=== PATIENT | male | born 1970 | race Caucasian/White ===

== ENCOUNTER 2024-11-11 16:30 | Emergency (ER) | payer OTHER, SELFPAY ==
[2024-11-11] VITALS (22 sets, daily range): BP systolic 108–166; BP diastolic 58–102; PULSE 48–108; RESP 13–24; TEMP 35.3; O2SAT 91–98; BMI 33.8
--- OUTSIDE RECORDS SUMMARY | 2024-11-11 16:31 | XMS_ITS | Clinical Summary ---
Author Organization [facility] Address [address] [place] [id number] Care Team Providers Care Machine Filler Shredder Name Role Phone Pcp, No Primary Care Provider Unavailabl e Allergies No known active allergies Medications amoxicillin-clavul anate 875-125 mg tablet (AUGMENTIN) 07/26/2020 Active oxyCODONE (ROXICODONE) 5 mg immediate release tablet 07/25/2020 Active Active Problems Problem Noted Date Diagnosed Date Obesity (BMI 30-39.9) 11/23/2016 Right ureteral stone 11/03/2016 Immunizations Immunization Administration Dates Next Due Tdap 11/23/2016 Family History Medical History Relation Name Comments No Known Problems Brother Hypertension Father Diabetes Maternal Grandfather Cancer Mother lung Heart Disease Paternal Grandfather No Known Problems Sister Relation Name Status Comments Brother Alive Father Alive Maternal Grandfather Mother Paternal Grandfather Sister Alive Social History Tobacco Use Types Packs/Day Years Used Date Smoking Tobacco: Never Smokeless Tobacco: Former Chew Tobacco Cessation:Counseling Given: Yes Alcohol Use Standard Drinks/Week Comments No 0 (1 standard drink = 0.6 oz pur e alcohol) Social Connections Answer Date Recorded Frequency of Communication with Friends and Fami ly Not on file 04/11/2021 Financial Resource Strain Answer Date R ecorded Difficulty of Paying Living Expenses Not on file 04/11/2021 Difficulty of Paying Living Expenses Not on file 04/11/2021 Sex and Gender Information Value Date Recorded Sex Assigned at Not on file 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 Gender Identity Not on file Sexual Orientation Not on file Obstetrics History Last Filed Vital Signs Vital Sign Reading Time Taken Comments Blood Pressure 137/94 07/28/2020 2:31 PM CDT Pulse 84 07/28/2020 2:31 PM CDT Temperature 36 C (96.8 F) 06/21/2019 9:30 AM CDT Respiratory Rate 16 06/21/2019 9:30 AM CDT Oxygen Saturation 97% 07/28/2020 2:31 PM CDT Inhaled Oxygen Concentration - - Weight 105.7 kg (233 lb 1.6 oz) 07/28/2020 2:31 PM CDT Height 172.7 cm (5' 8) 06/21/2019 6:25 AM CDT Body Mass Index 35.44 06/21/2019 6:25 AM CDT Plan of Treatment Health Maintenance Due Date Last Done Comments HIV for age 15-65 1984 Hepatitis C screening for ag e 18-79 07/12/1987 Hepatitis B series for 19+ ( 1 of 3 - 19+ 3-dose series) 1988 Colonoscopy through age 75 2014 Lipids for age 45-75 2014 Depression screening for age 12+ 11/23/2017 11/24/19 17 Pneumococcal series for age 50+ (1 of 1 - PCV) 07/12/2019 Zoster (shingles) series for age 50+ (1 of 2) 07/12/2019 BMI (ht and wt on same day) for age 18+ 06/19/2020 06/20/2019, 12/15/2016, 11/23/2016, Additional history exists COVID-19 vaccine series ( season) 2023 Influenza Vaccine (#1) 2024 Tetanus booster 11/23/2026 11/23/[address] [place] [address] Advance Directives * Full Code (Latest Code Status on File) Date Activated Date Inactivated Comments 06/21/2019 6:01 AM 06/21/2019 3:35 PM * Full Code Date Activated Date Inactivated Comments 11/25/2016 11:57 AM 11/25/2016 8:09 PM Care Teams Machine Filler Shredder Relationship Specialty Start Date End Date Pcp, No . PCP - General 04/19/24
--- NOTE | 2024-11-11 16:34 | CRLHL7_ITS ---
For Patients: As a result of the Century Cures Act, medical imaging exams and procedure reports are released immediately into your electronic medical record. You may view this report before your referring provider. If you have questions, please contact your health care provider. INDICATION: 54-year-old with chest and abdominal pain. TECHNIQUE: CT chest without contrast then CT chest, abdomen and pelvis acquired with Isovue 370, 109 mL contrast, dissection protocol. COMPARISON: None. FINDINGS: CHEST: Cardiovascular structures: The unenhanced images demonstrate no evidence of aortic intramural hematoma. The entire aorta is normal in caliber and there is no sign of aortic dissection or aneurysm. No high grade stenosis of the branching arteries. Heart size is normal. No pericardial effusion. Pulmonary Arteries: No central emboli. No dilation. Lungs and pleura: Lungs are clear. No pleural effusions. Shallow inspiration. Mediastinum and stephanie: No mass or adenopathy. Chest wall and axilla: No mass or adenopathy. Bones: Unremarkable for age. ABDOMEN AND PELVIS: Liver: Unremarkable. Gallbladder and bile ducts: Cholecystectomy. No biliary dilation. Pancreas: Unremarkable. Spleen: Unremarkable. Adrenal glands: Unremarkable. Kidneys: Unremarkable. GI tract: Scattered colon diverticula without focal inflammation. No obstruction or perforation. Appendix: Normal Vascular structures: Unremarkable. Lymph nodes: Unremarkable. Miscellaneous: Unremarkable. No free air or significant free fluid. Pelvic Organs: Unremarkable. Bones: Unremarkable for age. Soft Tissues:Small bilateral inguinal hernias containing fat. IMPRESSION: 1. No evidence for dissection, acute pulmonary embolus or acute intrathoracic disease. 2. No acute abdominal or pelvic abnormalities. Please note that all CT scans at this facility use dose modulation, iterative reconstruction, and/or weight-based dosing when appropriate to reduce radiation dose to as low as reasonably achievable. Dictated by Drake Santos MD @ 11/11/2024 5:45:16 PM (Electronically Signed)
[2024-11-11] MEDS: MORPHINE 4 MG/ML INJ IVP (16:51)
[2024-11-11] MEDS: ONDANSETRON 2 MG/ML inj 4 MG IVP (16:51)
[2024-11-11 16:56] LABS: Lactate Sepsis w/Reflex* 2.2 mmol/L (0.5-1.9)
[2024-11-11] MEDS: NITROGLYCERIN 0.4 MG TAB.SUBL SUBLINGUAL (16:57)
[2024-11-11 17:00] LABS: Hematocrit 48.7 % (37.0-53.0); Hemoglobin* 16.7 gm/dL (13.5-17.5); Immature Granulocytes Abs Auto 0.09 K/uL (0.00-0.30); Immature Granulocytes Pct Auto 0.9 %; Mean Corpuscular HGB Conc 34 gm/dL (32-36); Mean Corpuscular Hemoglobin 32 pg (26-34); Mean Corpuscular Volume 94 fL (80-100); RDW Coefficient of Variation % 12.2 % (11.5-15.5); Red Blood Count 5.17 m/uL (4.30-5.90); White Blood Count* 10.47 K/uL (4.50-11.00)
[2024-11-11 17:02] LABS: Lymphocytes Absolute Auto 1.50 K/uL (0.90-2.90); Slide Review Reflex No
--- NOTE | 2024-11-11 17:03 | ED_ITS ---
HPI - General Adult General Date Seen: 11/11/24 Chief complaint: Abdominal Pain Stated complaint: Potential Heart Attack Time Seen by Provider: 11/11/24 16:34 History of Present Illness HPI narrative: Patient is a 54-year-old who presents by private vehicle for evaluation of left- sided pain which seems to be both chest and abdominal, he rates this as severe. It started while he was gardening, he developed some nausea and vomited couple of times at home. He denies history of similar pain. He does not have any known cardiac history, but notes that he does not really go to the doctor. 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 He denies tobacco use. He is status post cholecystectomy. No other abdominal surgeries. He denies shortness of breath or pleuritic chest pain. No recent travel or immobility, no lower extremity swelling or pain. He does have a history of kidney stones remotely but says this feels different. Related Data Previous Rx's ?Medication ?Instructions ?Recorded azithromycin 250 mg tablet See Rx Instructions PO .COM PLEX #6 08/03/24 tabs benzonatate 200 mg capsule 200 mg PO BID-TID PRN cough #20 08/03/24 caps Allergies Allergy/AdvReac Type Severity Reaction Status Date / Time No Known Drug Allergies Allergy Verified 11/11/24 17:16 Review of Systems Status of ROS: Reports: 10 or more systems reviewed and unremarkable except as noted in History and below [facility] Social History Smoking Status: Never smoker How often do you have a drink containing alcohol: monthly or less AUDIT-C Alcohol total score: 1 Non-prescribed substance use: denies use Exam Narrative: Exam Narrative: Vital signs reviewed In general, alert, mildly ill-appearing middle-aged male, looks significantly uncomfortable. Head: Normocephalic, atraumatic. Eyes: Sclera clear. Pupils equal and reactive. ENT: Mucous membranes moist. Neck: Supple without adenopathy. Heart: Bradycardic, regular. No significant murmur. Lungs: Clear. No increased work of breathing, crackles or wheezes. Abdomen: Protuberant, soft, diffuse mid abdominal tenderness without rebound guarding or rigidity. Extremities: Well perfused, pulses intact. No significant edema. Neurologic: Alert, conversant. Speech fluent, face symmetric. Moves all extremities equally. Skin: Warm, dry well perfused. Affect: Normal. Const: Vital Signs, click to edit/add: Vital Signs - 24 hr 11/11/24 16:33 11/11/24 16:34 11/11/24 17:00 Temperature 95.6 F L Pulse Rate 108 H Pulse Rate [Pulse Oximeter] 48 L Respiratory Rate 24 19 Blood Pressure Blood Pressure [Le ft Upper Arm] 164/91 H Pulse Oximetry 98 95 94 Oxygen Delivery Me thod Room Air 11/11/24 17:02 11/11/24 17:03 11/11/24 17:58 Temperature Pulse Rate 104 H 104 H 65 Pulse Rate [Pulse Oximeter] Respiratory Rate 14 15 Blood Pressure 108/58 L Blood Pressure [Le ft Upper Arm] Pulse Oximetry 93 93 91 [facility] 11/11/24 18:00 11/11/24 18:02 11/11/24 18:12 Temperature Pulse Rate 57 L 67 63 Pulse Rate [Pulse Oximeter] Respiratory Rate 20 21 Blood Pressure 153/100 H 160/101 H Blood Pressure [Le ft Upper Arm] Pulse Oximetry 91 91 94 Oxygen Delivery Md thod 11/11/24 18:15 11/11/24 18:22 11/11/24 18:35 Temperature Pulse Rate 61 65 Pulse Rate [Pulse Oximeter] Respiratory Rate 14 24 Blood Pressure 146/102 H Blood Pressure [Le ft Upper Arm] Pulse Oximetry 95 96 Oxygen Delivery Md thod 11/11/24 18:37 11/11/24 18:42 11/11/24 18:45 Temperature Pulse Rate 58 L 68 57 L Pulse Rate [Pulse Oximeter] Respiratory Rate 13 21 17 Blood Pressure 165/90 H 166/95 H Blood Pressure [Le ft Upper Arm] Pulse Oximetry 97 95 96 Oxygen Delivery Me thod 11/11/24 18:52 11/11/24 19:04 11/11/24 19:13 Temperature Pulse Rate 56 L 66 56 L Pulse Rate [Pulse Oximeter] Respiratory Rate 14 21 Blood Pressure 149/87 H 154/96 H Blood Pressure [Le ft Upper Arm] Pulse Oximetry 95 96 95 Oxygen Delivery Md thod 11/11/24 19:15 11/11/24 19:22 11/11/24 19:30 Temperature Pulse Rate 53 L 52 L 54 L Pulse Rate [Pulse Oximeter] Respiratory Rate 16 14 15 Blood Pressure 148/98 H Blood Pressure [Le ft Upper Arm] Pulse Oximetry 94 94 96 Oxygen Delivery Me thod 11/11/24 19:45 Temperature Pulse Rate 60 Pulse Rate [Pulse Oximeter] Respiratory Rate 13 Blood Pressure Blood Pressure [Le ft Upper Arm] Pulse Oximetry 97 Oxygen Delivery Me thod Course Course ED Course: Patient was seen while in triage, he had an EKG which showed a sinus bradycardia ventricular rate of 46. I do not see acute ST segment changes however. He does have a PVC, no markedly abnormal T-waves. Upon placement in the room he had an IV established. I did look with the bedside ultrasound, I do not see pericardial effusion or significant dilation of the right ventricle. His left kidney looks normal. I was not able to visualize his aorta secondary to body habitus and bowel gas. Diagnostic considerations are broad and include aortic pathology such as dissection, acute coronary syndrome, pulmonary embolism, kidney stone, bowel obstruction, mesenteric ischemia, choledocholithiasis, pancreatitis, among others. I have ordered a CT scan to evaluate for dissection, will give morphine and Zofran and try sublingual nitro to see if that has any effect on his pain. He is somewhat hypertensive here with initial blood pressure of 164/91. Sinus bradycardia without evident symptoms such as lightheadedness, shortness of breath or chest pain. Patient did not have significant improvement in his pain with sublingual nitro or morphine, it was briefly slightly better and then became severe again. He had Dilaudid 0.5 mg IV which was helpful. Overall, his workup was really quite negative. His initial troponin was negative, and a repeat troponin at 2-1/2 hours was also 0. His CBC is normal, his metabolic panel is normal, lactate initially was 2.2, repeat was 1.8. LFTs normal, CRP less than 0.5, lipase 142. UA did have 5-10 red blood cells, otherwise negative. CT scan dissection protocol was done. This showed by my review no evidence of dissection. I did not see significant hydronephrosis or evidence of a kidney stone. No evidence of bowel obstruction. No inflammatory changes of the bowel. Radiology read also reads the CT scan is showing no acute findings specifically no dissection, kidney stone, PE or other acute findings. Patient has felt improved since Dilaudid, he has been up to the bathroom, he has had something to drink and abdominal pain has settled down. In talking to his , he was working outside in came inside complaining of not feeling well, she says he just look kind of eduardo, then he had vomiting. He says that he did have some chest discomfort of some kind at home but while here really was just having severe abdominal pain. It is not a particularly hot day, I do not think this was he related. In the absence of ongoing pain in with an improving lactate I do not think this is likely ischemic bowel. There are no noted significant stenoses of the abdominal vasculature. I did recommend to him that we get a stress test, no evidence of acute coronary syndrome tonight but I think this is still worthwhile. At this time I do not see a reason that he can be discharged home and he and his are comfortable with that. Reviewed that no clear cause for his symptoms is evident right now and so if he has recurrent severe pain I would want him to come back to the emergency department. Otherwise, I have arranged for an outpatient stress treadmill echo and have asked him to follow up with Dr. Almaraz after his stress test. Vital Signs Vital signs: Initial Vital Signs Temperature 95.6 F L 11/11/24 16:33 Temperature Source Temporal Artery Scan 11/11/24 16:33 Pulse Rate 48 L 11/11/24 16:33 Respiratory Rate 24 11/11/24 16:33 Blood Pressure 164/91 H 11/11/24 16:33 Blood Pressure Mean 115 H 11/11/24 16:33 Blood Pressure Position Sitting 11/11/24 16:33 Pulse Oximetry 98 11/11/24 16:33 Oxygen Delivery Method Room Air 11/11/24 16:33 Vital Signs Temperature 95.6 F L 11/11/24 16:33 Pulse Rate 48 L 11/11/24 16:33 Respiratory Rate 24 11/11/24 16:33 Blood Pressure 164/91 H 11/11/24 16:33 Pulse Oximetry 98 11/11/24 16:33 Oxygen Delivery Method Room Air 11/11/24 16:33 Temperature 95.6 F L 11/11/24 16:33 Pulse Rate 60 11/11/24 19:45 Respiratory Rate 13 11/11/24 19:45 Blood Pressure 148/98 H 11/11/24 19:22 Pulse Oximetry 97 11/11/24 19:45 Oxygen Delivery Method Room Air 11/11/24 17:02 Medications Administered Medications: Discontinued Medications Generic Name Dose Route Start Last Admin Trade Name [place] PRN Reason Stop Dose Admin Hydromorphone HCl 0.5 mg 11/11/24 17:25 11/11/24 17:28 Hydromorphone 0.5 Mg/0.5 Ml Inj IVP 11/11/24 17:26 0.5 mg ONCE ONE Administration Sodium Chloride 1,000 mls @ 1,000 mls/hr 11/11/24 18:00 11/11/24 18:57 0.9 % Sodium Chloride 1000 Ml IV 11/11/24 18:59 Infused .Q1H TERRY Infusion Morphine Sulfate 4 mg 11/11/24 16:34 11/11/24 16:51 Morphine 4 Mg/Ml Inj IVP 11/11/24 16:35 4 mg ONCE ONE Administration Nitroglycerin 0.4 mg 11/11/24 16:34 11/11/24 16:57 Nitroglycerin 0.4 Mg Tab.Subl SUBLINGUAL 0.4 mg Q5M PRN Administration Ondansetron HCl 4 mg 11/11/24 16:34 11/11/24 16:51 Ondansetron 2 Mg/Ml Inj IVP 11/11/24 16:35 4 mg ONCE ONE Administration Medical Decision Making Lab Data Labs: Lab Results 11/11/24 11/11/24 11/11/24 Range/Units 16:35 16:47 18:58 WBC 10.47 (4.50-11.00) K/uL RBC 5.17 (4.30-5.90) m/uL Hgb 16.7 (13.5-17.5) gm/dL Hct 48.7 (37.0-53.0) % MCV 94 (80-100) fL MCH 32 (26-34) pg MCHC 34 (32-36) gm/dL RDW Coeff of Fernando 12.2 (11.5-15.5) % Plt Count 265 (140-440) K/uL Neut % (Auto) 74.1 H (42.0-72.0) % Lymph % (Auto) 14.8 L (20-44) % [place] % (Auto) 7.1 (0.0-11.0) % Eos % (Auto) 2.7 (0.0-7.0) % Baso % (Auto) 0.4 (0.0-3.0) % Neut # (Auto) 7.80 H (1.7-7.0) K/uL Lymph # (Auto) 1.50 (0.90-2.90) K/uL [place] # (Auto) 0.70 (0.00-0.90) K/UL Eos # (Auto) 0.28 (0.00-0.50) K/uL Baso # (Auto) 0.04 (0.00-0.30) K/uL Abs Immat Gran (auto) 0.09 (0.00-0.30) K/uL Imm/Tot Granulo (auto) 0.9 % INR 0.88 L (0.91-1.10) Sodium 140 (135-149) mmol/L Potassium 3.5 L (3.6-5.1) mmol/L Chloride 106 (96-114) mmol/L Carbon Dioxide 21 (20-32) mmol/L Anion Gap 13 (7-15) mEq/L BUN 13 (7-30) mg/dL Creatinine 1.0 (0.5-1.5) mg/dL Estimated Creat Clear 80.75 Estimated GFR 89 ml/min Glucose 120 H (60-115) mg/dL Lactate 2.2 H 1.8 (0.5-1.9) mmol/L Calcium 9.2 (8.4-10.6) mg/dL Total Bilirubin 0.4 (0.1-1.5) mg/dL Direct Bilirubin 0.2 (0.0-0.5) mg/dL AST 31 (12-35) U/L ALT 28 (4-50) U/L Alkaline Phosphatase 63 (40-150) U/L Troponin I < 0.01 (0.01-0.04) ng/mL C-Reactive Protein < 0.5 L (0.5-1.0) mg/dL Total Protein 8.1 (6.0-8.3) g/dL Albumin 4.8 (3.3-5.0) g/dL Lipase 142 (23-300) U/L Urine Color Yellow (Yellow) Urine Appearance Clear (Clear) Urine pH 7.0 (5.0-8.5) Ur Specific [place] 1.015 (1.000-1.030) Urine Protein Negative (Negative) Urine Glucose (UA) Negative (Negative) Urine Ketones Negative (Negative) Urine Blood 3+ A (Negative) Urine Nitrite Negative (Negative) Urine Bilirubin Negative (Negative) Urine Urobilinogen 0.2 (0.2-1.0) Ur Leukocyte Esterase Negative (Negative) Urine RBC 5-10 A (0-2) Urine WBC 0-2 (0-5) Ur Squamous Epith Cells None (None-Few) Urine Bacteria None (None) POC Troponin I 0.02 (0.01-0.04) ng/ml 11/11/24 Range/Units 19:26 WBC (4.50-11.00) K/uL RBC (4.30-5.90) m/uL Hgb (13.5-17.5) gm/dL Hct (37.0-53.0) % MCV (80-100) fL MCH (26-34) pg MCHC (32-36) gm/dL RDW Coeff of Fernando (11.5-15.5) % Plt Count (140-440) K/uL Neut % (Auto) (42.0-72.0) % Lymph % (Auto) (20-44) % [place] % (Auto) (0.0-11.0) % Eos % (Auto) (0.0-7.0) % Baso % (Auto) (0.0-3.0) % Neut # (Auto) (1.7-7.0) K/uL Lymph # (Auto) (0.90-2.90) K/uL [place] # (Auto) (0.00-0.90) K/UL Eos # (Auto) (0.00-0.50) K/uL Baso # (Auto) (0.00-0.30) K/uL Abs Immat Gran (auto) (0.00-0.30) K/uL Imm/Tot Granulo (auto) % INR (0.91-1.10) Sodium (135-149) mmol/L Potassium (3.6-5.1) mmol/L Chloride (96-114) mmol/L Carbon Dioxide (20-32) mmol/L Anion Gap (7-15) mEq/L BUN (7-30) mg/dL Creatinine (0.5-1.5) mg/dL Estimated Creat Clear Estimated GFR ml/min Glucose (60-115) mg/dL Lactate (0.5-1.9) mmol/L Calcium (8.4-10.6) mg/dL Total Bilirubin (0.1-1.5) mg/dL Direct Bilirubin (0.0-0.5) mg/dL AST (12-35) U/L ALT (4-50) U/L Alkaline Phosphatase (40-150) U/L Troponin I (0.01-0.04) ng/mL C-Reactive Protein (0.5-1.0) mg/dL Total Protein (6.0-8.3) g/dL Albumin (3.3-5.0) g/dL Lipase (23-300) U/L Urine Color (Yellow) Urine Appearance (Clear) Urine pH (5.0-8.5) Ur Specific [place] (1.000-1.030) Urine Protein (Negative) Urine Glucose (UA) (Negative) Urine Ketones (Negative) Urine Blood (Negative) Urine Nitrite (Negative) Urine Bilirubin (Negative) Urine Urobilinogen (0.2-1.0) Ur Leukocyte Esterase (Negative) Urine RBC (0-2) Urine WBC (0-5) Ur Squamous Epith Cells (None-Few) Urine Bacteria (None) POC Troponin I 0.00 L (0.01-0.04) ng/ml Imaging Data CT scan - abdomen: Attestation: I have reviewed the pertinent imaging results. Radiologist's impression: Patient: Abel Johnson MR#: [id number] : 1970 Acct:[id number] Loc: ED Service Date: 11/11/[address]: Ordering Physician: Negra Joseph M.D. Date of Service: 11/11/24 Procedure(s): CT angio CAP aortic dissection Accession Number(s): [id number] cc: Negra Joseph M.D.; Provider,Not a Local~ For Patients: As a result of the Cures Act, medical imaging exams and procedure reports are released immediately into your electronic medical record. You may view this report before your referring provider. If you have questions, please contact your health care provider. INDICATION: 54-year-old with chest and abdominal pain. TECHNIQUE: CT chest without contrast then CT chest, abdomen and pelvis acquired with Isovue 370, 109 mL contrast, dissection protocol. COMPARISON: None. FINDINGS: CHEST: Cardiovascular structures: The unenhanced images demonstrate no evidence of aortic intramural hematoma. The entire aorta is normal in caliber and there is no sign of aortic dissection or aneurysm. No high grade stenosis of the branching arteries. Heart size is normal. No pericardial effusion. Pulmonary Arteries: No central emboli. No dilation. Lungs and pleura: Lungs are clear. No pleural effusions. Shallow inspiration. Mediastinum and stephanie: No mass or adenopathy. Chest wall and axilla: No mass or adenopathy. Bones: Unremarkable for age. ABDOMEN AND PELVIS: Liver: Unremarkable. Gallbladder and bile ducts: Cholecystectomy. No biliary dilation. Pancreas: Unremarkable. Spleen: Unremarkable. Adrenal glands: Unremarkable. Kidneys: Unremarkable. GI tract: Scattered colon diverticula without focal inflammation. No obstruction or perforation. Appendix: Normal Vascular structures: Unremarkable. Lymph nodes: Unremarkable. Miscellaneous: Unremarkable. No free air or significant free fluid. Pelvic Organs: Unremarkable. Bones: Unremarkable for age. Soft Tissues:Small bilateral inguinal hernias containing fat. IMPRESSION: 1. No evidence for dissection, acute pulmonary embolus or acute intrathoracic disease. 2. No acute abdominal or pelvic abnormalities. Please note that all CT scans at this facility use dose modulation, iterative reconstruction, and/or weight-based dosing when appropriate to reduce radiation dose to as low as reasonably achievable. Dictated by Drake Santos MD @ 11/11/2024 5:45:16 PM Discharge Plan Discharge Clinical Impression: Abdominal pain Patient Disposition: Home, Self-Care Condition: Improved Instructions: Abdominal Pain (ED) Additional Instructions: As discussed, your test today are all reassuring. Your EKG and blood work do not show evidence of a heart attack. Your kidney function, liver function, electrolytes and blood sugar are all normal. Your urine had a few red blood cells in it but does not show evidence of infection, and your CT scan did not show evidence of a problematic kidney stone. As of now, I do not know the etiology of your symptoms. If you have recurrent severe pain please return to the emergency room right away. Otherwise, I have asked them to schedule a stress test for you. I would like you to make an appointment with Dr. Almaraz for follow-up after your stress test. This will help further evaluate for coronary artery disease, or decreased oxygen supply of the heart. Prescriptions: No Action azithromycin 250 mg tablet See Rx Instructions PO .COMPLEX Qty: 6 0RF Rx Instructions: For 250 mg dose pack: take 500 mg today (day 1), then 250 mg for 4 days (days 2-5) PO benzonatate 200 mg capsule 200 mg PO BID-TID PRN (Reason: cough) Qty: 20 0RF Follow Up/Referrals: Provider,Not a Local [Primary Care Provider, Family Practice] Stand Alone Forms: [facility] Info Instructions
[2024-11-11 17:13] LABS: Albumin* 4.8 g/dL (3.3-5.0); Chloride* 106 mmol/L (96-114)
[2024-11-11 17:14] LABS: Potassium* 3.5 mmol/L (3.6-5.1); Sodium* 140 mmol/L (135-149)
[2024-11-11 17:16] LABS: Blood Urea Nitrogen* 13 mg/dL (7-30); Creatinine* 1.0 mg/dL (0.5-1.5); Est. Creatinine Clearance* 80.75; Estimated Glomerular Filt Rate 89 ml/min; INR 0.88 (0.91-1.10); Prothrombin Time 12.7 Seconds
[2024-11-11 17:17] LABS: Alanine Aminotransferase* 28 U/L (4-50); Alkaline Phosphatase* 63 U/L (40-150); Anion Gap 13 mEq/L (7-15); Aspartate Amino Transferase* 31 U/L (12-35); Bilirubin Direct* 0.2 mg/dL (0.0-0.5); Bilirubin Total* 0.4 mg/dL (0.1-1.5); Calcium* 9.2 mg/dL (8.4-10.6); Carbon Dioxide* 21 mmol/L (20-32); Glucose* 120 mg/dL (60-115); Total Protein* 8.1 g/dL (6.0-8.3)
[2024-11-11 17:22] LABS: Troponin, Point-of-Care* 0.02 ng/ml (0.01-0.04)
[2024-11-11 19:01] LABS: Lactate Sepsis 2 Hour 1.8 mmol/L (0.5-1.9)
[2024-11-11 19:16] LABS: Appearance Urine Clear (Clear)
[2024-11-11 19:37] LABS: Troponin, Point-of-Care* 0.00 ng/ml (0.01-0.04)
== END 2024-11-11 19:53 | disposition home or self-care (01) ==
PROVIDERS: Emergency Provider Emergency Medicine
DX: R10.9 Unspecified abdominal pain (principal); R07.9 Chest pain, unspecified; R11.2 Nausea with vomiting, unspecified; I10 Essential (primary) hypertension
CPT/HCPCS: 36415; 71275; 74174; 80048; 80076; 81001; 83605; 83690; 84484; 85025; 85610; 86140; 93005; 94761; 96374; 96375; 99284; 99285; A9270; J1171; J2270; J2405; J7030; Q9967

== ENCOUNTER 2024-11-12 17:31 | Emergency (ER) | payer OTHER, SELFPAY ==
--- OUTSIDE RECORDS SUMMARY | 2024-11-12 17:33 | XMS_ITS | Clinical Summary ---
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 Gender Identity Not on file Sexual Orientation [...] 06/21/2019 6:25 AM CDT Plan of Treatment Upcoming Encounters Date Type Department Care Team (Late st Contact Info) Description 11/13/2024 2:30 PM CDT Orders Only [facility] [address] [place] [address] Health Maintenance Due Date Last Done Comments [...] Additional history exists COVID-19 vaccine series ( - 2023- season) 2023 Influenza Vaccine (#1) 2024 Tetanus booster 11/23/2026 11/23/2016 Insurance [facility] Advance Directives * Full Code (Latest Code Status on File) Date Activated Date Inactivated Comments 06/21/2019 6:01 AM 06/21/2019 3:35 PM * Full Code Date Activated Date Inactivated Comments 11/25/2016 11:57 AM 11/25/2016 8:09 PM Care Teams Certified Medical Transcriptionist Relationship Specialty Start Date End Date Pcp, No . PCP - General 04/19/24
[2024-11-12 17:43] VITALS: BP 176/101; PULSE 50; RESP 20; TEMP 36.1; O2SAT 97; BMI 34.1
--- NOTE | 2024-11-12 18:42 | CRLHL7_ITS ---
For Patients: As a result of the Century Cures Act, medical imaging exams and procedure reports are released immediately into your electronic medical record. You may view this report before your referring provider. If you have questions, please contact your health care provider. INDICATION: Flank pain. TECHNIQUE: CT abdomen and pelvis without contrast. COMPARISON: July 23, 2020. FINDINGS: Lower chest: Scattered atelectasis. Liver: Normal in size and attenuation. No suspicious masses. Gallbladder and bile ducts: Prior cholecystectomy. Pancreas: Unremarkable. No mass or inflammation. Spleen: Normal in size. No masses. Adrenal glands: Normal in size. No nodules. Kidneys: Mild left-sided hydroureteronephrosis secondary to punctate obstructing left UVJ stone (series 2/image 139). Additional punctate nonobstructing right renal stone GI tract: Colonic diverticulosis without diverticulitis.. Normal in caliber. No sign of mass or inflammation. Normal appendix. Vasculature: Abdominal aorta is normal in caliber. Lymph nodes: No lymphadenopathy. Peritoneum/Abdominal Wall: Small fat containing left inguinal hernia.. No sign of mass or infiltration. No free air or significant free fluid. Pelvis: Unremarkable. No pelvic masses. Bones: Unremarkable for age. IMPRESSION: Mild left-sided hydronephrosis secondary to punctate obstructing left UVJ stone. Please note that all CT scans at this facility use dose modulation, iterative reconstruction, and/or weight-based dosing when appropriate to reduce radiation dose to as low as reasonably achievable. Dictated by Abel Mcdonald MD @ 11/12/2024 7:39:56 PM (Electronically Signed)
--- NOTE | 2024-11-12 18:44 | ED_ITS ---
HPI - Abdominal Pain General Chief Complaint: Flank Pain Stated Complaint: abd. pain Time Seen by Provider: 11/12/24 18:33 History of Present Illness HPI narrative: This 54-year-old male comes in reporting severe left flank pain that began yesterday. He has a history of kidney stones and states this feels like another stone that he is passing. He has some associated nausea. He reports some difficulty passing urine recently but was able to provide a urine sample here. Related Data Allergies Allergy/AdvReac Type Severity Reaction Status Date / Time No Known Drug Allergies Allergy Verified 11/11/24 17:16 Review of Systems Status of ROS Reports: 10 or more systems reviewed and unremarkable except as noted in History and below Narrative Constitutional: No fevers, no weight gain or loss. Eyes: No discharge. No vision changes. HENT: No congestion, no sore throat, no ear pain. Cardiovascular: No chest pain, no palpitations. Respiratory: No shortness of breath, no wheezes, no cough. Gastrointestinal: Flank pain and abdominal pain. Genitourinary: No dysuria, no hematuria. Musculoskeletal: Normal range of motion. Skin: No rashes, no pruritis. Neurological: No dizziness, weakness, sensory change, speech change. Endo/Heme/Allergies: No bruising or bleeding. No polydipsia. Pysch: no suicidality, no anxiety, no insomnia. All other systems reviewed and are negative. [facility] Social History Smoking Status: Never smoker How often do you have a drink containing alcohol: monthly or less AUDIT-C Alcohol total score: 1 Non-prescribed substance use: denies use Exam Narrative: Exam Narrative: Constitutional: Well-developed, well-nourished. HEENT: Normocephalic, atraumatic. Neck: Normal range of motion. Nontender. Supple. Heart: Intact distal pulses. Lungs: No chest discomfort. No wheezes, rhonchi, or rales. Abdomen: Diffuse abdominal pain and left flank pain. Back: Normal range of motion. Extremities: Normal range of motion. No injury. Skin: Intact. No rash. Warm. No erythema or pallor. Neurologic: No altered sensation. No weakness. Alert and oriented. Psychiatric: No suicidality. No anxiety or depression. No insomnia. Nursing notes and vitals signs are reviewed. Const: Vital Signs, click to edit/add: Vital Signs - 24 hr 11/12/24 17:43 Temperature 96.9 F L Pulse Rate [Pulse Oximeter] 50 L Respiratory Rate 20 Blood Pressure [Ri ght Upper Arm] 176/101 H Pulse Oximetry 97 Oxygen Delivery Me thod Room Air Course Vital Signs Vital signs: Initial Vital Signs Temperature 96.9 F L 11/12/24 17:43 Temperature Source Temporal Artery Scan 11/12/24 17:43 Pulse Rate 50 L 11/12/24 17:43 Respiratory Rate 20 11/12/24 17:43 Blood Pressure 176/101 H 11/12/24 17:43 Blood Pressure Mean 126 H 11/12/24 17:43 Blood Pressure Position Sitting 11/12/24 17:43 Pulse Oximetry 97 11/12/24 17:43 Oxygen Delivery Method Room Air 11/12/24 17:43 Vital Signs Temperature 96.9 F L 11/12/24 17:43 Pulse Rate 50 L 11/12/24 17:43 Respiratory Rate 20 11/12/24 17:43 Blood Pressure 176/101 H 11/12/24 17:43 Pulse Oximetry 97 11/12/24 17:43 Oxygen Delivery Method Room Air 11/12/24 17:43 Temperature 96.9 F L 11/12/24 17:43 Pulse Rate 50 L 11/12/24 17:43 Respiratory Rate 20 11/12/24 17:43 Blood Pressure 176/101 H 11/12/24 17:43 Pulse Oximetry 97 11/12/24 17:43 Oxygen Delivery Method Room Air 11/12/24 17:43 Medications Administered Medications: Discontinued Medications Generic Name Dose Route Start Last Admin Trade Name Freq PRN Reason Stop Dose Admin Hydromorphone HCl 0.5 mg 11/12/24 18:42 11/12/24 18:49 Hydromorphone 0.5 Mg/0.5 Ml Inj IVP 11/12/24 18:43 0.5 mg ONCE ONE Administration Ketorolac Tromethamine 30 mg 11/12/24 18:42 11/12/24 18:49 Ketorolac 30 Mg/Ml Inj IVP 11/12/24 18:43 30 mg ONCE ONE Administration Ondansetron HCl 4 mg 11/12/24 18:42 11/12/24 18:49 Ondansetron 2 Mg/Ml Inj IVP 11/12/24 18:43 4 mg ONCE ONE Administration MDM - Abdominal Pain MDM Narrative Medical decision making narrative: This patient comes in with symptoms typical of passing a kidney stone. He has had 6 stones that he has passed previously. An IV was established as he was rather uncomfortable. He did receive IV doses of Toradol 30 mg, Dilaudid 0.5 mg, and Zofran 4 mg. This brought sufficient relief to his symptoms. CT imaging does show a small punctate stone at the left ureterovesical junction. There is associated mild hydronephrosis. His urinalysis shows some microscopic blood but no evidence of infection. The patient is okay to be discharged home and did receive prescriptions for Erwin, Toradol, and Zofran. Lab Data Labs: Lab Results 11/12/24 Range/Units 18:00 Urine Color Yellow (Yellow) Urine Appearance Clear (Clear) Urine pH 5.5 (5.0-8.5) Ur Specific Freedom >= 1.030 (1.000-1.030) Urine Protein 1+ A (Negative) Urine Glucose (UA) Negative (Negative) Urine Ketones Negative (Negative) Urine Blood 3+ A (Negative) Urine Nitrite Negative (Negative) Urine Bilirubin Negative (Negative) Urine Urobilinogen 0.2 (0.2-1.0) Ur Leukocyte Esterase Negative (Negative) Imaging Data CT scan - abdomen: Radiologist's impression: Mild left-sided hydronephrosis secondary to punctate obstructing left UVJ stone. Discharge Plan Discharge Clinical Impression: Calculus of kidney Patient Disposition: Home w/ Parent or Adult Condition: Improved Additional Instructions: Take medication as needed and directed. Follow up with MD return if worsening. Follow Up/Referrals: Provider,Not a Local [Primary Care Provider, Family Practice] Stand Alone Forms: [facility] Info Instructions
[2024-11-12] MEDS: ONDANSETRON 2 MG/ML inj 4 MG IVP (18:49)
[2024-11-12 18:53] VITALS: O2SAT 97
[2024-11-12 19:09] LABS: Appearance Urine Clear (Clear)
--- OUTSIDE RECORDS SUMMARY | 2024-11-13 09:16 | XMS_ITS | Clinical Summary ---
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 Gender Identity Not on file Sexual Orientation [...] Description 11/13/2024 2:30 PM CDT Orders Only [facility] [address] [place] [address] Health Maintenance Due Date Last Done Comments [...] (#1) 2024 Tetanus booster 11/23/2026 11/23/2016 Insurance [employer] Advance Directives * Full Code (Latest Code Status on File) Date Activated Date Inactivated Comments 06/21/2019 6:01 AM 06/21/2019 3:35 PM * Full Code Date Activated Date Inactivated Comments 11/25/2016 11:57 AM 11/25/2016 8:09 PM Care Teams Mail Teller Relationship Specialty Start Date End Date Pcp, No . PCP - General 04/19/24
== END 2024-11-12 21:18 | disposition home or self-care (01) ==
PROVIDERS: Emergency Provider Emergency Medicine Emergency Medical Services
DX: N20.0 Calculus of kidney (principal); R11.0 Nausea; Z87.442 Personal history of urinary calculi
CPT/HCPCS: 74176; 81001; 81003; 94761; 96374; 96375; 99284; J1171; J1885; J2405

== ENCOUNTER 2024-11-13 14:04 | Outpatient (CLI) | payer OTHER, SELFPAY ==
[2024-11-13] MEDS: PERFLUTREN LIPID MICROSPHERES 2 ML VIAL IVP (15:36)
[2024-11-13 15:39] VITALS: BP 180/120; PULSE 90; RESP 18
--- NOTE | 2024-11-13 15:47 | P.STN_ITS ---
Stress Test Note Date Date of test: 11/13/24 Providers Referring provider: Negra Joseph Primary care provider: Jaren Almaraz Stress test physician: Ganesh Cruz Stress Test Note Stress test ordered: Stress Echo Indication for test: Chest pain Stress test medicine: Definity Results discussion: Patient is a very nice gentleman who presents for the above test after discussion the risks benefits and side effects he would like to proceed, his currently battling a kidney stone, cardiac stress test history is reviewed, pretest EKG shows normal sinus rhythm, with a ventricular rate of 50, blood pressure 144/98. Standard Colin protocol using definity is done for 9 minute., he achieved a metabolic equivalent of 10.3 Mets. A maximum heart rate of 150, which is 107% of the maximum, maximum blood pressure 196 on 04/14. Test is terminated because of fulfillment of protocol, during this test he had no chest pain or shortness of breath, there is no ST wave changes suggestive of ischemia. Impression: Negative electrographic portion of stress echo, subjectively negative Follow up suggested: Await echo read, clinical correlation with this will be needed, he will follow- up with the above physician, the left this testing facility in good condition we did give him a shot of Toradol 30 mg IM before he left, he has not had any NSAIDs today, or any other medication for his kidney stones, I did review his chart in the emergency room, and told him that he should not take any ibuprofen Toradol for the remainder of the day, he was grateful for this.
== END 2024-11-13 15:40 | disposition home or self-care (01) ==
LOC: STRESS 14:04
PROVIDERS: Visit Provider Emergency Medicine
DX: R07.9 Chest pain, unspecified (principal)
CPT/HCPCS: 93016; 93325; 93351; J1885; Q9957

== ENCOUNTER 2025-02-22 08:58 | Emergency (ER) | payer OTHER, SELFPAY ==
[2025-02-22] VITALS (11 sets, daily range): BP systolic 136–180; BP diastolic 90–100; PULSE 42–51; RESP 14–18; TEMP 36.9; O2SAT 92–96; BMI 34.2
--- OUTSIDE RECORDS SUMMARY | 2025-02-22 09:01 | XMS_ITS | Clinical Summary ---
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 Gender Identity Not on file Sexual Orientation [...] 06/19/2020 06/20/2019, 12/15/2016, 11/23/2016, Additional history exists Influenza Vaccine (#1) 2024 Tetanus booster 11/23/2026 11/23/2016 RSV vaccine for adults or (1 - 1-dose 75+ series) 2044 Insurance [place] [id number] Advance Directives * Full Code (Latest Code Status on File) Date Activated Date Inactivated Comments 06/21/2019 6:01 AM 06/21/2019 3:35 PM * Full Code Date Activated Date Inactivated Comments 11/25/2016 11:57 AM 11/25/2016 8:09 PM Care Teams Vacuum Metalizing Supervisor Relationship Specialty Start Date End Date Pcp, No . PCP - General 04/19/24
--- NOTE | 2025-02-22 10:08 | ED.GENADULT ---
HPI - General Adult General Time Seen by Provider: 10:09 Date Seen: 02/22/25 Chief complaint: Dizziness/Vertigo Stated complaint: Loss of hearing L ear, dizziness Time Seen by Provider: 02/22/25 10:08 Source: patient and RN notes reviewed Mode of arrival: ambulatory Limitations: no limitations History of Present Illness HPI narrative: This 54-year-old male is coming in with loss of hearing in dizziness, the loss of hearing is in his left ear. He noted ringing in his left ear yesterday and muffling of sound. Today now he notes dizziness which is described as a spinning sensation, worse with lying down. He notes no otalgia, has not had any cough or cold symptoms, no chest symptoms. He has never had symptoms like this before, does not note any incoordination with arms legs, due to his dizziness or spinning sensation, feel some disequilibrium with walking but no other neurologic symptoms noted, no visual symptoms. Again no pain in the ear, no fevers. Patient is not aware of anybody in the family with a history of Meniere's disease. Related Data Home Medications ?Medication ?Instructions ?Recorded ?Confirmed ketorolac 10 mg tablet 10 mg PO QHS 11/20/24 11/20/24 Previous Rx's ?Medication ?Instructions ?Recorded meclizine 25 mg tablet 25 mg PO QID PRN #60 tabs 02/22/25 prednisone 20 mg tablet 20 mg PO BID #14 tabs 02/22/25 valacyclovir 1 gram tablet 1,000 mg PO TID #21 tabs 02/22/25 Allergies Allergy/AdvReac Type Severity Reaction Status Date / Time No Known Drug Allergies Allergy Verified 11/20/24 14:51 Review of Systems Status of ROS: Reports: 6 or more systems reviewed and unremarkable except as noted in History and below PFSH PFS Surgical History History of cholecystectomy ?Z90.49 - Acquired absence of other specified parts of digestive tract (ICD-10) Social History What is your current living situation?: declined to answer Problems where you live: declined to answer In the past 12 months, utilities in danger of being shut off: declined to answer In past 12 months, lack of transportation kept you from medical appts, meetings, work, or getting things needed for daily living: declined to answer In the past 12 mos, have been you worried that your food would run out before you had money to buy more?: declined to answer In the past 12 mos, the food you bought just didn't last and you didn't have money to buy more?: declined to answer Smoking Status: Never smoker How often do you have a drink containing alcohol: monthly or less AUDIT-C Alcohol total score: 1 Non-prescribed substance use: denies use How often does anyone, including family, friends and others, physically hurt you: decline to answer How often does anyone, including family, friends and others, insult or talk down to you: decline to answer How often does anyone, including family, friends and others, threaten you with harm: decline to answer How often does anyone, including family, friends and others, scream or curse at you: decline to answer service: No Health Related Social Needs: unsheltered homelessness (Z59.02) Exam Const: Vital Signs, click to edit/add: Vital Signs - 24 hr 02/22/25 09:29 02/22/25 12:00 02/22/25 13:00 Temperature 98.4 F Pulse Rate 44 L 44 L Pulse Rate [Pulse Oximeter] 45 L Respiratory Rate 18 14 14 Blood Pressure 136/90 H Blood Pressure [Ri ght Upper Arm] 180/100 H Pulse Oximetry 95 94 93 Oxygen Delivery Me thod Room Air Room Air This 54-year-old male was resting, wakens easily, he is alert, interactive, no apparent distress, head of bed is at about 45?. Pupils are equal and round, conjugate gaze, sclera clear. He has some occasional right fine beating nystagmus at attenuate, I really cannot get nystagmus, there is no increased symptoms with head impulse, no nystagmus noted. TMs canals are normal. Oropharynx normal, symmetrical facial function, speech is normal. Neck is supple, no adenopathy, no jugular venous distension. Lungs are clear come good air entry, no wheezing or crackles, no tachypnea, no accessory muscle use. CV regular rate and rhythm, no murmur. He cannot hear finger rub by his left ear but can by his right ear. Documenting provider has reviewed patient's vital signs: yes Course Course ED Course: Have reviewed with patient that I do wonder if this could be an initial episode of Meniere's disease. He definitely has hearing loss, discussed with him I am going to talk to ENT and I will come back to talk to him. Reevaluation(s) Time of Reevaluation #1: 10:27 Reevaluation #1: Patient in I reviewed the ENT differential of the sudden hearing loss which could be viral, it is possible this is a 1st episode of Meniere's disease. Had further questions about the dizziness or the spinning sensation, particularly if he lies back. Vertigo is associated with Meniere's disease but there has to be 2 episodes technically to diagnose that. I did tell the patient that I would talk to Neurology briefly on this case as well. Time of Reevaluation #2: 11:07 Reevaluation #2: Patient will be having his MRI in about an hour. Will give him an oral dose of Valium 5 mg and meclizine 25 mg to help with dizziness when lying back. Time of Reevaluation #3: 13:55 Reevaluation #3: Patient is provided a copy of his MRI report. There is no evidence of any stroke. He does feel a bit better after Valium and meclizine. We will discharge show for treatment of acute since in her hearing loss, treat with prednisone and Valtrex. Will give him some meclizine to help with vertiginous symptoms. Consultations Consultation #1: Did talk to Dr. Li from ENT. He is concerned that this could be sudden onset of hearing loss, there can be dizziness with this. He thinks we should treat with prednisone and Valtrex. Patient should follow-up in a week. By definition this cannot be Meniere's because he would need to episodes but this certainly could be the 1st episode of Meniere's. No further workup is indicated at this time, we should treat the patient with the medications and have him follow-up. I will update the patient on this. Time: 10:24 Consultation #2: Did speak with Stroke Neurology from [facility] Dr. Sheehan. He agrees with treating with prednisone and Valtrex as this does sound like it could be a viral labyrinthitis type picture with the sudden hearing loss. Hearing loss is not typically a stroke symptom but it is possible it could be, he is going to have us proceed with MR imaging. I will update the patient on this, MR brain noncontrast has been ordered. If there is no concerns on this, patient will be discharged with plans as noted. Time: 10:53 Vital Signs Vital signs: Initial Vital Signs Temperature 98.4 F 02/22/25 09:29 Temperature Source Temporal Artery Scan 02/22/25 09:29 Pulse Rate 45 L 02/22/25 09:29 Respiratory Rate 18 02/22/25 09:29 Blood Pressure 180/100 H 02/22/25 09:29 Blood Pressure Mean 126 H 02/22/25 09:29 Pulse Oximetry 95 02/22/25 09:29 Oxygen Delivery Method Room Air 02/22/25 09:29 Vital Signs Temperature 98.4 F 02/22/25 09:29 Pulse Rate 45 L 02/22/25 09:29 Respiratory Rate 18 02/22/25 09:29 Blood Pressure 180/100 H 02/22/25 09:29 Pulse Oximetry 95 02/22/25 09:29 Oxygen Delivery Method Room Air 02/22/25 09:29 Temperature 98.4 F 02/22/25 09:29 Pulse Rate 44 L 02/22/25 13:00 Respiratory Rate 14 02/22/25 13:00 Blood Pressure 136/90 H 02/22/25 12:00 Pulse Oximetry 93 02/22/25 13:00 Oxygen Delivery Method Room Air 02/22/25 12:00 Medications Administered Medications: Discontinued Medications Generic Name Dose Route Start Last Admin Trade Name Mingo LYMANN Reason Stop Dose Admin Diazepam 5 mg 02/22/25 11:06 02/22/25 11:17 Diazepam 5 Mg Tablet PO 02/22/25 11:07 5 mg ONCE ONE Administration Meclizine HCl 25 mg 02/22/25 11:06 02/22/25 11:17 Meclizine Hcl 25 Mg Tablet PO 02/22/25 11:07 25 mg ONCE ONE Administration Medical Decision Making Imaging Data MR Brain: Attestation: I have reviewed the pertinent imaging results. Radiologist's impression: Patient: MARY MORGAN Facility:?[facility] Patient ID:?[id number] Site Patient ID:?[id number]. Site :?[id number] Study:?MRI-Head WO-02/22/2025 12:51:59 PM Ordering Physician:?Anjum Gandhi Final Report: Indication: Dizziness, left-sided hearing loss Technique: Multiplanar, multisequence MRI of the brain obtained without contrast. Comparison: None. Findings: The ventricles and cortical sulci are age-appropriate in size and configuration. No midline shift or mass effect. No acute intracranial hemorrhage or abnormal extra-axial fluid collection. No evidence of acute/subacute ischemia. A few nonspecific punctate FLAIR hyperintense foci are noted throughout the cerebral white matter, suggestive of minor chronic microangiopathy changes or potentially sequela of chronic migraine headaches. Partially empty sella configuration. Preserved major intracranial arterial flow voids. Unremarkable bone marrow signal. Minor mucosal thickening throughout the ethmoid air cells and inferior maxillary sinuses. No mastoid effusion. Unremarkable orbits. Impression: 1. No evidence of acute intracranial abnormality. Dictated by Verónica Ocasio MD @ 02/22/2025 12:58:29 PM (Electronic Signature) Discharge Plan Discharge Clinical Impression: Acute hearing loss of left ear, Vertigo Patient Disposition: Home, Self-Care Condition: Stable Instructions: Meniere Disease (ED), Hearing Loss (ED), Vertigo (ED) Additional Instructions: Start the prednisone today, take 2 pills or 40 mg right away and then starting tomorrow follow the prescription instructions. Try to get 2 doses of the Valtrex in today, take 1 when you get the medication and then another 1 tonight, do recommend that you complete this medication, it will be taken 3 times a day. Meclizine can be used as needed for the dizziness/vertigo. Follow prescription instructions. You are going to need to call [facility] to get scheduled for an ENT follow-up with Dr. Li in 1-2 weeks time. Take the prednisone with food to help prevent stomach irritation. I did provide a handout on Meniere's disease. Technically, Meniere's disease cannot be diagnosed unless a patient has had 2 episodes of vertigo with hearing loss. It is possible that this could be Meniere's, possible it could be a viral issue causing the left inner ear to have hearing loss from nerve swelling, can be associated with the vertigo/dizziness as well. Activity Level: Activity as Tolerated Prescriptions: New prednisone 20 mg tablet 20 mg PO BID Qty: 14 0RF Rx Instructions: Take at 8am and 2pm with food. valacyclovir 1 gram tablet 1,000 mg PO TID Qty: 21 0RF meclizine 25 mg tablet 25 mg PO QID PRNQty: 60 0RF No Action ketorolac 10 mg tablet 10 mg PO QHS Follow Up/Referrals: Jaren Almaraz MD [Primary Care Provider, Family Practice] Stand Alone Forms: YES.[facility] Info Instructions
--- NOTE | 2025-02-22 10:53 | CRLHL7_ITS ---
For Patients: As a result of the Century Cures Act, medical imaging exams and procedure reports are released immediately into your electronic medical record. You may view this report before your referring provider. If you have questions, please contact your health care provider. Indication: Dizziness, left-sided hearing loss Technique: Multiplanar, multisequence MRI of the brain obtained without contrast. Comparison: None. Findings: The ventricles and cortical sulci are age-appropriate in size and configuration. No midline shift or mass effect. No acute intracranial hemorrhage or abnormal extra-axial fluid collection. No evidence of acute/subacute ischemia. A few nonspecific punctate FLAIR hyperintense foci are noted throughout the cerebral white matter, suggestive of minor chronic microangiopathy changes or potentially sequela of chronic migraine headaches. Partially empty sella configuration. Preserved major intracranial arterial flow voids. Unremarkable bone marrow signal. Minor mucosal thickening throughout the ethmoid air cells and inferior maxillary sinuses. No mastoid effusion. Unremarkable orbits. Impression: 1. No evidence of acute intracranial abnormality. Dictated by Verónica Ocasio MD @ 02/22/2025 12:58:29 PM (Electronically Signed)
[2025-02-22] MEDS: MECLIZINE HCL 25 MG TABLET PO (11:17)
== END 2025-02-22 14:18 | disposition home or self-care (01) ==
PROVIDERS: Emergency Provider Family Medicine; PCP Family Medicine
DX: H91.92 Unspecified hearing loss, left ear (principal); R42 Dizziness and giddiness
CPT/HCPCS: 70551; 99284; A9270